=== PATIENT | female | born 1990 | race Caucasian/White ===

== ENCOUNTER 2021-01-11 05:30 | Inpatient (IN) ==
[2021-01-11] MEDS ORDERED: CITRIC ACID/SODIUM CITRATE 30 ML UDCUP PO ONE (05:44)
[2021-01-11] MEDS ORDERED: FAMOTIDINE 20 MG/2 ML VIAL IV ONE (05:44)
[2021-01-11] MEDS ORDERED: ceFAZolin 2,000 MG/50 ML DUPLEX IV ONE (05:44)
[2021-01-11] MEDS ORDERED: LACTATED RINGERS 1,000 ML IV ONE (05:45)
[2021-01-11 06:07] LABS: Basophils % 0.4 % (0.0-0.8); Eosinophils % 0.3 % (0.00-10.9); Hematocrit 33.8 VOL% (35.7-47.0); Hemoglobin 10.4 GM/DL (12.0-16.0); Immature Granulocytes % 0.8 %; Immature Granulocytes Absolute 0.06 #; Lymphocytes # 2.3 10*3/uL (1.4-4.0); Lymphocytes % 30.6 % (21.3-54.2); Mean Corpuscular HGB Conc 30.8 GM/DL (32-36); Mean Corpuscular Volume 76.3 FL (87-102); Mean Platelet Volume 12.1 FL (9.6-12.0); Monocytes % 6.5 % (1.7-12.7); Neutrophils % 61.4 % (38.7-73.9); Platelet Count 217 T/CUMM (130-400); Red Blood Count 4.43 MC/CUMM (3.8-5.5); Red Cell Distribution Width 16.4 % (9.3-17.3); White Blood Count 7.5 T/CUMM (4-12)
[2021-01-11 06:29] LABS: Albumin 2.6 G/DL (3.4-5.0); Bilirubin,Total 0.9 MG/DL (0.20-1.00); Calcium 8.7 MG/DL (8.5-10.1); Potassium 3.8 MMOL/L (3.5-5.1)
[2021-01-11] MEDS ORDERED: ONDANSETRON 4 MG/2 ML VIAL ONE ×3 (07:12→08:50)
[2021-01-11] MEDS ORDERED: ONDANSETRON 4 MG/2 ML VIAL IV PRN ×2 (07:13→10:40)
[2021-01-11] MEDS: LACTATED RINGERS 1,000 ML IV SCH ×2 (07:54→14:46)
[2021-01-11] MEDS ORDERED: miSOPROStoL 200 MCG TABLET ONE (08:06)
[2021-01-11] MEDS ORDERED: TRANEXAMIC ACID 1,000 MG/10 ML VIAL ONE (08:06)
[2021-01-11] MEDS ORDERED: METHYLERGONOVINE 0.2 MG/1 ML AMP ONE (08:07)
[2021-01-11] MEDS ORDERED: OXYTOCIN/LR 20 UNIT/1,000 ML BAG IV ONE ×5 (08:07→10:40)
[2021-01-11] MEDS ORDERED: CARBOPROST TROMETHAMINE 250 MCG/ML AMP IM ONE (08:08)
[2021-01-11] MEDS ORDERED: BUPIVACAINE SPINAL 0.75% 2 ML AMP SPINAL ONE (08:20)
[2021-01-11] MEDS ORDERED: DEXAMETHASONE 4 MG/1 ML VIAL ONE ×2 (08:50)
[2021-01-11] MEDS ORDERED: KETOROLAC 30 MG/1 ML VIAL ONE ×2 (08:51)
[2021-01-11] MEDS ORDERED: MIDAZOLAM 2 MG/2 ML VIAL ONE (09:05)
[2021-01-11] MEDS ORDERED: GLYCOPYRROLATE 0.4 MG/2 ML VIAL ONE (09:06)
[2021-01-11] MEDS ORDERED: PHENYLEPHRINE 1 MG/10 ML SYRINGE IV ONE ×2 (09:06)
[2021-01-11 09:09] LABS: Cord Arterial Blood HCO3 25.4 MMOL/L
[2021-01-11 09:11] LABS: Cord Venous Blood HCO3 23.7 MMOL/L; Cord Venous Blood PCO2 41.5 MMHG; Cord Venous Blood PO2 36.3
[2021-01-11 09:13] LABS: Bacteria,Urine Occasional /HPF (Few); Bilirubin,Urine Negative (Negative); Blood, Urine Negative (Negative); Glucose,Urine (UA) Negative (Negative); Ketones,Urine Negative (Negative); Mucus,Urine Occasional /LPF (Occasional); Nitrite,Urine Negative (Negative); Protein,Urine Negative; Squamous Epithelial Cell,Urine Occasional /HPF (0-10); Urine Appearance CLEAR (Clear); Urine Color Yellow (Yellow); Urine Specific Gravity 1.011 (1.001-1.035); Urine Urobilinogen < 2.0 EU/DL (0.2-1.0)
[2021-01-11] MEDS ORDERED: WITCH HAZEL PADS 100/JAR TOP PRN (10:40)
[2021-01-11] MEDS ORDERED: LANOLIN 50% CREAM 0.3 OZ TUBE TOP PRN (10:40)
[2021-01-11] MEDS ORDERED: HYDROCORTISONE 2.5% RECTAL CREAM 30 GM TUBE TOP PRN (10:40)
[2021-01-11] MEDS ORDERED: ACETAMINOPHEN 325 MG TABLET PO PRN (10:40)
[2021-01-11] MEDS ORDERED: DIPH/TET/ACEL PERT BOOSTER VACCINE 0.5 ML VIAL IM ONE (10:40)
[2021-01-11] MEDS ORDERED: MEASLES/MUMPS/RUBELLA VACCINE 0.5 ML VIAL SUBCUT ONE (10:40)
[2021-01-11] MEDS ORDERED: BENZOCAINE 20%/MENTHOL 0.5% SPRAY 56 GM CAN TOP PRN (10:40)
[2021-01-11] MEDS ORDERED: oxyCODONE/ACETAMINOPHEN 5-325 MG TABLET PO PRN (10:40)
[2021-01-11] MEDS ORDERED: BISACODYL 10 MG SUPP RECTAL PRN (10:40)
[2021-01-11] MEDS ORDERED: RHO(D) IMMUNE GLOBULIN 300 MCG SYRINGE IM ONE (10:40)
[2021-01-11] MEDS ORDERED: hydrOXYzine HCL 25 MG/1 ML VIAL IM PRN (11:45)
[2021-01-11] MEDS ORDERED: HYDROmorphone 2 MG/1 ML VIAL IV PRN (11:45)
[2021-01-11] MEDS ORDERED: diphenhydrAMINE 50 MG/1 ML VIAL IV PRN (11:45)
[2021-01-11] MEDS: ACETAMINOPHEN 500 MG TABLET PO SCH ×2 (12:53→17:44)
[2021-01-11] MEDS: oxyCODONE/ACETAMINOPHEN 5-325 MG TABLET PO PRN ×2 (13:56→22:17)
[2021-01-11] MEDS: KETOROLAC 30 MG/1 ML VIAL IV SCH ×2 (15:29→21:15)
[2021-01-11] MEDS: DOCUSATE SODIUM 100 MG CAPSULE PO SCH (21:30)
[2021-01-12] MEDS: KETOROLAC 30 MG/1 ML VIAL IV SCH (04:14)
[2021-01-12] MEDS: ACETAMINOPHEN 500 MG TABLET PO SCH ×2 (04:19→06:30)
[2021-01-12 05:50] LABS: Basophils % 0.2 % (0.0-0.8); Eosinophils % 0.1 % (0.00-10.9); Hematocrit 23.8 VOL% (35.7-47.0); Hemoglobin 7.2 GM/DL (12.0-16.0); Immature Granulocytes % 0.9 %; Immature Granulocytes Absolute 0.12 #; Lymphocytes # 3.2 10*3/uL (1.4-4.0); Mean Corpuscular HGB Conc 30.3 GM/DL (32-36); Mean Platelet Volume 12.2 FL (9.6-12.0); Monocytes % 6.1 % (1.7-12.7); Neutrophils % 69.7 % (38.7-73.9); Platelet Count 163 T/CUMM (130-400); Red Blood Count 3.05 MC/CUMM (3.8-5.5); Red Cell Distribution Width 16.4 % (9.3-17.3); White Blood Count 13.8 T/CUMM (4-12)
[2021-01-12] MEDS ORDERED: [UNRECOGNIZED DRUG - REMARK] PO SCH (09:00)
[2021-01-12] MEDS: DOCUSATE SODIUM 100 MG CAPSULE PO SCH ×3 (09:23→20:26)
[2021-01-12] MEDS: oxyCODONE/ACETAMINOPHEN 5-325 MG TABLET PO PRN ×3 (09:24→21:09)
[2021-01-12] MEDS: IBUPROFEN 800 MG TABLET PO PRN ×2 (13:41→19:51)
[2021-01-12] MEDS: FERROUS SULFATE 325 MG TABLET PO SCH ×3 (15:06→20:29)
[2021-01-13] MEDS: IBUPROFEN 800 MG TABLET PO PRN (02:22)
[2021-01-13] MEDS ORDERED: MAGNESIUM HYDROXIDE SUSP 30 ML UDCUP PO PRN (04:08)
[2021-01-13] MEDS: oxyCODONE/ACETAMINOPHEN 5-325 MG TABLET PO PRN (07:00)
[2021-01-13] MEDS: FERROUS SULFATE 325 MG TABLET PO SCH (08:33)
[2021-01-13] MEDS: DOCUSATE SODIUM 100 MG CAPSULE PO SCH (08:33)
[2021-01-13 08:45] VITALS: BP 99/58
== END 2021-01-13 11:55 | disposition home or self-care (01) | DRG 788 ==
LOC: N.LD 05:30 → N.OB 01-12 10:09
PROVIDERS: ADMIT Specialist; ATTEND Specialist
PROC: LDCSECT (ICD-10-PCS; 2021-01-11 08:30)